=== PATIENT | female | born 1965 | race Caucasian/White ===

== ENCOUNTER → 2017-06-16 | Outpatient (CLI) | payer OTHER ==
--- NOTE | ~2017-06-16 | MY29 ---
[facility] A Service of [facility] RADIOLOGY TEXT RESULTS PATIENT: GORAN MCKEON LOCATION: [facility] : 69 UNIT #: [id number] AGE: [address]: Morales Fernández MD SEX: F ORDER DR: [id number] [facility] [address] [place], [place] [address] [id number] O MR#: [id number] Acc #: [id number] NAME: GORAN MCKEON : 1965 SEX: F STUDY DATE/TIME: 06/16/2017 9:35 UNIT: [facility] ROOM: STUDY DESCRIPTION: MY POLLO SCREENING W/ CAD BILAT Attending Physician: Morales Fernández M.D. Referring Physician: Morales Fernández M.D. Ordering Physician: Morales Fernández M.D. Primary Care Physician: Morales Fernández M.D. MEDICAL IMAGING REPORT This report is preliminary unless electronic signature is present EXAM Bilateral digital screening mammogram with CAD Date: 06/16/2017 HISTORY Family history breast cancer in a grandmother in her 50s. No personal history of breast cancer or current complaints. COMPARISON The patient's previous screening mammogram was performed over 15 years ago, location unknown. It cannot be located. Therefore, the current examination serves as the patient's new baseline study. FINDINGS CC and MLO views were obtained of each breast utilizing digital technique and reviewed with an FDA-approved CAD device. Scattered fibroglandular densities are present bilaterally. A 7 mm focal asymmetry is demonstrated within medial hemisphere right breast only on the CC view. No architectural distortion or suspicious microcalcifications are seen. IMPRESSION BIRADS 0. Additional imaging required. Focal asymmetry in the medial hemisphere of the right breast CC view proximally, 7 cm deep to the nipple. While I suspect this may simply represent summation artifact of patient's normal tissue, further evaluation is warranted. True ML view of the right breast along with spot CC compression view recommended. If the density persists, diagnostic right breast ultrasound should be performed [facility] A Service of [facility] RADIOLOGY TEXT RESULTS PATIENT: GORAN MCKEON LOCATION: [facility] : 69 UNIT #: [id number] AGE: [address]: Morales Fernández MD SEX: F ORDER DR: on same day for complete evaluation. Patients over the age of 40 are entered into a reminder system with target due date for the next mammogram. A result letter will also be sent to the patient. BIRADS: 0 Need Additional Imaging Evaluation and/or Prior Mammograms for Comparison Dictated by... Daria Mary M.D. THIS IS AN ELECTRONICALLY VERIFIED REPORT Daria Mary M.D. at 06/19/2017 8:34 AM EL/henny TD: 06/16/2017 20:57 JOB #: [id number] MEDICAL IMAGING REPORT Page 1 of 1 COPY
== END | disposition home or self-care (01) ==
LOC: CWCC 09:22
DX: Z12.31 Encounter for screening mammogram for malignant neoplasm of breast (principal); Z80.3 Family history of malignant neoplasm of breast
CPT/HCPCS: G0202